=== PATIENT | male | born 1960 | race Caucasian/White ===

== ENCOUNTER 2016-10-25 14:03 | Outpatient (CLI) ==
[2014-06-13 17:13] VITALS: BMI 48.2
== END 2016-10-25 14:04 | disposition home or self-care (01) ==
LOC: LAB 14:03
PROVIDERS: ATTEND Urology
DX: R97.20 Elevated prostate specific antigen [PSA] (principal)
CPT/HCPCS: 36415; 84153

== ENCOUNTER 2018-06-01 | Emergency (ER) | END 2018-06-02 00:26 | disposition short-term general hospital (02) | CPT/HCPCS: 36415; 80053; 85025; 87070; 96365; 99285 ==